=== PATIENT | male | born 1960 | race Caucasian/White ===

== ENCOUNTER 2016-07-24 06:16 | Day surgery (SDC) | payer OTHER ==
[~2016-07-24 06:16] MED LIST: IV START KIT ONE; LACTATED RINGERS 1,000 ML ONE
[2016-07-24] MEDS ORDERED: FENTANYL 5 ML ONE (06:44)
[2016-07-24] MEDS ORDERED: MIDAZOLAM HCL 5 MG/5 ML VIAL ONE (06:44)
[2016-07-24] MEDS ORDERED: FENTANYL 250 MCG/5 ML AMP IV PRN (07:04)
[2016-07-24] MEDS ORDERED: MIDAZOLAM HCL 5 MG/5 ML VIAL IV PRN (07:04)
[2016-07-24] MEDS ORDERED: LACTATED RINGERS 1,000 ML IV SCH (07:15)
== END 2016-07-24 08:30 | disposition home or self-care (01) ==
LOC: SDC 06:16
PROVIDERS: ATTEND Family Medicine
PROC: 0DJD8ZZ Inspection of Lower Intestinal Tract, Via Natural or Artificial Opening Endoscopic (ICD-10-PCS; principal; 2016-07-24)
DX: Z12.11 Encounter for screening for malignant neoplasm of colon (principal); K57.30 Diverticulosis of large intestine without perforation or abscess without bleeding; Z80.3 Family history of malignant neoplasm of breast
CPT/HCPCS: 45378; J3010; J2250; J7120